=== PATIENT | female | born 1980 | race Two or more races ===

== ENCOUNTER 2020-04-25 04:30 | Day surgery (SDC) | payer OTHER ==
[2020-04-24 14:56] VITALS: BMI 28.1
[~2020-04-25 04:30] MED LIST: PHENAZOPYRIDINE HCL 100 MG TABLET (FP) PO ONE
[2020-04-25 06:40] LABS: EPI CELLS 18 /uL (0-25.1); HYALINE CASTS 3 /uL (0-3.1); URINE APPEARANCE CLEAR; URINE BACTERIA 348 /uL (0-1359); URINE BILIRUBIN NEGATIVE (NEGATIVE); URINE COLOR YELLOW; URINE GLUCOSE (UA) NEGATIVE (NEGATIVE); URINE KETONE NEGATIVE (NEGATIVE); URINE LEUK ESTERASE TRACE (NEGATIVE); URINE NITRITE NEGATIVE (NEGATIVE); URINE PROTEIN NEGATIVE (NEGATIVE); URINE RBC 34 /uL (0-23.9); URINE UROBILINOGEN 0.2 mg/dL (0.2-1.0); URINE WBC 35 /uL (0-25.8)
[2020-04-25] MEDS ORDERED: PHENAZOPYRIDINE HCL 100 MG TABLET (FP) ONE (06:40)
[2020-04-25 06:41] LABS: HCG,QUALITATIVE URINE Negative
[2020-04-25] MEDS ORDERED: ceFAZolin SODIUM 1 GM VIAL ONE (06:41)
[2020-04-25] MEDS ORDERED: PHENAZOPYRIDINE HCL 100 MG TABLET (FP) PO ONE (06:45)
[2020-04-25 06:51] LABS: INR 0.99 (0.83-1.09)
[2020-04-25] MEDS ORDERED: CEFAZOLIN 2 GM in DEXTROSE 5%-WATER - 100 ML IVPB ONE (07:00)
[2020-04-25] MEDS ORDERED: LIDOCAINE HCL/PF 2% SDV 5ML VIAL ONE (07:32)
[2020-04-25] MEDS ORDERED: PROPOFOL 20 ML ONE ×2 (07:32)
[2020-04-25] MEDS ORDERED: ROCURONIUM BROMIDE 50 MG/5 ML SYRINGE ONE (07:33)
[2020-04-25] MEDS ORDERED: fentaNYL CITRATE 250 MCG/5 ML VIAL ONE (07:33)
[2020-04-25] MEDS ORDERED: MIDAZOLAM HCL 2 MG/2 ML SINGLE DOSE VIAL ONE ×4 (07:33→07:41)
[2020-04-25] MEDS ORDERED: BUPIVACAINE LIPOSOME/PF (EXPAREL) 266 MG/20 ML VIAL ONE (07:38)
[2020-04-25] MEDS ORDERED: ceFAZolin SODIUM 1 GM VIAL IVPB ONE (08:15)
[2020-04-25] MEDS ORDERED: DEXAMETHASONE SOD PHOSPHATE 4 MG/1 ML VIAL ONE (08:31)
[2020-04-25] MEDS ORDERED: GLYCOPYRROLATE 0.2 MG/1 ML VIAL ONE (09:21)
[2020-04-25] MEDS ORDERED: NEOSTIGMINE METHYLSULFATE 0.5 MG/ML - 10 ML MDV ONE (09:21)
[2020-04-25] MEDS ORDERED: ONDANSETRON 4 MG/2 ML VIAL IVPUSH PRN (09:46)
[2020-04-25] MEDS ORDERED: PROMETHAZINE HCL 25 MG/1 ML VIAL IVPUSH PRN (09:46)
[2020-04-25] MEDS ORDERED: ENOXAPARIN NA (PORCINE) 40 MG/0.4 ML DISP.SYRIN SQ SCH (10:00)
[2020-04-25] MEDS ORDERED: LACTATED RINGERS SOLUTION 1,000 ML IV SCH (10:00)
[2020-04-25] MEDS ORDERED: RIVAROXABAN 20 MG TABLET PO SCH ×2 (10:00→18:00)
[2020-04-25] MEDS ORDERED: ACETAMINOPHEN INJECTION 100 ML IVPB ONE (10:17)
[2020-04-25] MEDS: ACETAMINOPHEN 1000 MG/100 ML VIAL (NON FORMULARY) IVPB PRN ×2 (10:21→23:42)
[2020-04-25] MEDS ORDERED: ENOXAPARIN NA (PORCINE) 40 MG/0.4 ML DISP.SYRIN SQ ONE (13:06)
[2020-04-25] MEDS: CEFAZOLIN 2 GM/D5W 2 GM/50 ML ML IVPB SCH (15:45)
[2020-04-25] MEDS ORDERED: CEFAZOLIN 2 GM in DEXTROSE 5%-WATER - 100 ML IVPB SCH (16:00)
[2020-04-25] MEDS ORDERED: ZOLPIDEM TARTRATE 5 MG TABLET PO PRN (16:10)
[2020-04-25] MEDS: IBUPROFEN 800 MG/8 ML IJ IVPB PRN (18:00)
[2020-04-26] MEDS: CEFAZOLIN 2 GM/D5W 2 GM/50 ML ML IVPB SCH (00:03)
[2020-04-26] MEDS: IBUPROFEN 800 MG/8 ML IJ IVPB PRN (06:21)
[2020-04-26] MEDS ORDERED: SODIUM CHLORIDE 500 ML IV STA (08:21)
[2020-04-26] MEDS ORDERED: oxyCODONE HCL 5 MG TABLET PO PRN (08:25)
[2020-04-26 09:24] VITALS: BP 121/76; PULSE 82; TEMP 98.8
[2020-04-26 10:58] LABS: BASO % 0.3 % (0-2.0); EOS % 0.2 % (0-4.5); HEMATOCRIT 27.2 % (32.4-45.2); HEMOGLOBIN 8.3 GM/dL (10.7-15.3); LYMPH % 18.3 % (8-40); MCHC 30.4 g/dl (32.0-36.0); MEAN PLT VOLUME 9.4 fl (7.5-11.1); MONO % 6.6 % (3.8-10.2); NEUT % 74.6 % (42.8-82.8); PLATELET COUNT 137 K/MM3 (134-434); RBC 3.45 M/mm3 (3.60-5.2); RDW 22.1 % (11.6-15.6); WHITE BLOOD COUNT 10.7 K/mm3 (4.0-10.0)
[2020-04-26 11:17] LABS: POTASSIUM 3.9 mmol/L (3.5-5.1)
[2020-04-26 11:19] LABS: BLOOD UREA NITROGEN 9.7 mg/dL (7-18); CALCIUM 7.8 mg/dL (8.5-10.1)
[2020-04-26 11:22] LABS: CREATININE 0.8 mg/dL (0.55-1.3)
[2020-04-26 12:55] LABS: ANISOCYTOSIS 2+; MACROCYTOSIS 1+; PLATELET ESTIMATE DECREASED
== END 2020-04-26 15:45 | disposition home or self-care (01) ==
LOC: JASUSAT 04:30 → J3W 12:56 → JASUSAT 04-26 15:45
PROVIDERS: ATTEND Obstetrics & Gynecology
PROC: 8E0W8CZ Robotic Assisted Procedure of Trunk Region, Via Natural or Artificial Opening Endoscopic (ICD-10-PCS; 2020-04-25)
PROC: 0UT9FZZ Resection of Uterus, Via Natural or Artificial Opening With Percutaneous Endoscopic Assistance (ICD-10-PCS; principal; 2020-04-25 07:30)
PROC: 0UT7FZZ Resection of Bilateral Fallopian Tubes, Via Natural or Artificial Opening With Percutaneous Endoscopic Assistance (ICD-10-PCS; 2020-04-25 07:30)
DX: D25.1 Intramural leiomyoma of uterus (principal); N83.8 Other noninflammatory disorders of ovary, fallopian tube and broad ligament
CPT/HCPCS: 58552; S2900; 36415; 80048; 81003; 84703; 85025; 85610; 86850; 86900; 86901; 88302-TC; 88307-TC; 93005; 93010; 94010; 94760; J0131